=== PATIENT | male | born 1950 | race Caucasian/White ===

== ENCOUNTER 2022-10-29 12:30 | Emergency (ER) | payer MEDICARE, BC ==
[~2022-10-29] VITALS: Ht 177.8 cm; Wt 68.0 kg
[~2022-10-29 12:30] MED LIST changes: -OXYMETAZOLINE HCL 0.05% NAS 1 SPRAY BTL ONE
[2022-10-29] MEDS ORDERED: OXYMETAZOLINE HCL 0.05% NAS 1 SPRAY BTL ONE ×2 (12:45)
== END 2022-10-29 13:27 | disposition home or self-care (01) ==
LOC: MERGE 12:41 → FSED 12:41
DX: R04.0 Epistaxis (principal); D68.9 Coagulation defect, unspecified; I10 Essential (primary) hypertension; E78.5 Hyperlipidemia, unspecified; Z86.79 Personal history of other diseases of the circulatory system; Z95.810 Presence of automatic (implantable) cardiac defibrillator
CPT/HCPCS: 85610; 99282

== ENCOUNTER → 2022-10-29 | Emergency (ER) | payer SELFPAY ==
[~2022-10-29] MED LIST: AMIODARONE HCL200 MG PO; COUMADIN5 MG PO; MULTIVITAMINS1 EAC7 PO; OXYMETAZOLINE HCL 0.05% NAS 1 SPRAY BTL ONE; RAMIPRIL5 MG PO; calcium PO; vitamin D3 PO
== END | disposition left against medical advice (07) ==
LOC: FSED 12:27
DX: R04.0 Epistaxis (principal)

== ENCOUNTER 2022-12-15 21:23 | Emergency (ER) | payer MEDICARE, BC ==
[~2022-12-15] VITALS: Ht 177.8 cm; Wt 68.0 kg
[2022-12-15 22:19] LABS: BASOPHILS # (AUTO) 0.1 (0.0-0.1); BASOPHILS % 1.2 % (0.0-1.0); EOSINOPHILS # (AUTO) 0.1 (0.0-0.4); EOSINOPHILS % 2.9 % (0.0-6.0); HEMATOCRIT 33.6 % (38.2-49.6); HEMOGLOBIN 10.9 g/dL (14.0-18.0); LYMPHOCYTES # (AUTO) 0.9 (1.0-3.2); LYMPHOCYTES % 22.1 % (18.0-39.1); MEAN CORPUSCULAR HEMOGLOBIN 31.1 pg (28-32); MEAN CORPUSCULAR HGB CONC 32.4 g/dL (31-35); MONOCYTES # (AUTO) 0.5 (0.2-0.8); MONOCYTES % 11.5 % (4.4-11.3); NEUTROPHILS # (AUTO) 2.6 (2.1-6.9); NEUTROPHILS % 62.3 % (38.7-80.0); PLATELET COUNT 167 x10e3/uL (140-360); RED CELL DISTRIBUTION WIDTH 13.6 % (11.7-14.4)
[2022-12-15 22:27] LABS: INR 2.96; PROTHROMBIN TIME 31.2 seconds (11.9-14.5)
[2022-12-15 22:38] LABS: ALBUMIN 3.7 g/dL (3.5-5.0); ALBUMIN/GLOBULIN RATIO 1.6 (0.8-2.0); ANION GAP 13.2 mmol/L (8-16); CALCIUM 8.7 mg/dL (8.4-10.2); CREATININE, SERUM 1.65 mg/dL (0.72-1.25); POTASSIUM 4.2 mmol/L (3.5-5.1)
[2022-12-15 22:51] VITALS: O2SAT 98
== END 2022-12-15 22:55 | disposition home or self-care (01) ==
LOC: FSED 21:53
DX: R04.0 Epistaxis (principal); T45.515A Adverse effect of anticoagulants, initial encounter; D68.32 Hemorrhagic disorder due to extrinsic circulating anticoagulants; R79.1 Abnormal coagulation profile; I48.91 Unspecified atrial fibrillation; Z79.01 Long term (current) use of anticoagulants; I10 Essential (primary) hypertension; G20 Parkinson's disease; Z95.2 Presence of prosthetic heart valve; Z95.810 Presence of automatic (implantable) cardiac defibrillator; Y92.009 Unspecified place in unspecified non-institutional (private) residence as the place of occurrence of the external cause
CPT/HCPCS: 36415; 80053; 85025; 85610; 85730; 99283